=== PATIENT | female | born 1935 ===

== ENCOUNTER 2016-12-28 19:26 | Observation (INO) | payer MEDICARE ==
[~2016-12-28] VITALS: Ht 157.5 cm; Wt 99.0 kg
[2016-12-28 20:35] LABS: BASOPHILS % (AUTO) 0 % (0-2); EOSINOPHILS # (AUTO) 0.4 10^3uL; EOSINOPHILS % (AUTO) 5 % (0-4); LYMPHOCYTES # (AUTO) 1.4 X10^3; MEAN CORPUSCULAR HGB CONC 34.4 g/dL (31.0-37.0); MEAN CORPUSCULAR VOLUME 93 FL (80-100); MEAN PLATELET VOLUME 9.4 FL (6.0-9.5); MONOCYTES # (AUTO) 0.7 X10^3; MONOCYTES % (AUTO) 8 % (3-11); NEUTROPHILS # (AUTO) 6.2 X10^3; NEUTROPHILS % (AUTO) 71 % (51-67); PLATELET COUNT 233 10^3uL (150-450); WHITE BLOOD COUNT 8.77 10^3uL (4.0-11.0)
[2016-12-28 20:47] LABS: MEAN CORPUSCULAR HEMOGLOBIN 32.1 PG (26.0-34.0)
[2016-12-28 20:55] LABS: ALBUMIN 3.8 g/dL (3.4-5.0); ALKALINE PHOSPHATASE 123 U/L (38-126); ANION GAP 10.9 MEQ/L (3-15); BUN/CREATININE RATIO 22 (10-20); CALCULATED IONIZED CALCIUM 3.9 mg/dL (3.8-4.6); CREATINE KINASE 169 U/L (30-135); TOTAL PROTEIN 6.8 g/dL (6.4-8.5)
[2016-12-28 22:49] LABS: BILIRUBIN,URINE Negative (Negative); CLARITY,URINE Clear; COLOR,URINE Yellow; GLUCOSE, URINE (UA) Negative (Negative); LEUKOCYTE ESTERASE ,URINE Negative (Negative); PH,URINE 5.5 (5.0 - 8.0)
--- NOTE | 2016-12-29 02:10 | NUR ---
Patient admitted to room 314 at this time. Alert, oriented, talkative with staff. Patient able to stand from ED cart and to walk several small steps with 1 assist to bed, and again able to stand and to change out of skirt and depends. Patient reports "Oh, this is much better than earlier." Large hematoma noted to left eye, small clot noted. Patient reports generalized pain 4/10. See admission assessment part 1 & 2. Dr. Merino to see patient. Will continue to monitor.
[2016-12-29] MEDS ORDERED: ACETAMINOPHEN 325 MG TAB (TYLENOL) PO PRN (02:55)
[2016-12-29] MEDS ORDERED: POTASSIUM CHLORIDE ER 20 MEQ TABLET PO ONE (02:55)
[2016-12-29 03:05] VITALS: BP 129/56
--- NOTE | 2016-12-29 06:16 | NUR ---
Patient has slept in bed since admission without needs. Has not reported any pain or needs. Has not been up to bathroom since admission but was incontinent on arrival to floor. No needs at this time.
--- NOTE | 2016-12-29 07:20 | NUR ---
Patient sitting up in recliner upon shift assessment. Had just returned from bathroom with 1 assist and steady gate. Alert and oriented X3. Neuro check WNL. Denies pain but reports generalized body aches when ambulating contributed to fall. Left eye minimally open with hematoma noted. Denies dizziness, blurred vision, or headache. HR RRR. Lung sounds CTAB. Ice applied to left side of face per patient request. Updated on plan of care for shift. Call light in reach.
[2016-12-29 07:40] VITALS: BP 116/43
[2016-12-29] MEDS: CLOPIDOGREL 75 MG (PLAVIX) TAB PO SCH (08:52)
[2016-12-29] MEDS: DOCUSATE SODIUM 100 MG (COLACE) CAP PO SCH (08:52)
[2016-12-29] MEDS: ASPIRIN 81 MG CHEW (CHILDREN'S ASA) PO SCH (08:52)
[2016-12-29] MEDS: CHOLECALCIFEROL 1000 INT UNITS (VITAMIN D3) TABLET PO SCH (08:52)
[2016-12-29] MEDS: ALLOPURINOL 100 MG (ZYLOPRIM) TAB PO SCH (08:52)
[2016-12-29] MEDS: FUROSEMIDE 40 MG (LASIX) TAB PO SCH (08:52)
[2016-12-29] MEDS: LEVOTHYROXINE 100 MCG (LEVOTHROID) TABLET PO SCH (08:52)
[2016-12-29] MEDS: ATENOLOL 50 MG (TENORMIN) TAB PO SCH (08:53)
[2016-12-29] MEDS: POTASSIUM CHLORIDE ER 20 MEQ TABLET PO SCH (08:53)
[2016-12-29] MEDS: CARBOXYMETHYLCELLULOSE 1% (CELLUVISC) OPHTHALMIC DROPS OU SCH ×4 (08:53→20:36)
[2016-12-29] MEDS ORDERED: ENOXAPARIN 40 MG/0.4 ML (LOVENOX) SYR SC SCH (09:00)
[2016-12-29] MEDS ORDERED: NON-FORMULARY MEDICATION 1 EA EA (Aspirin (Aspir 81) 81 MG) PO SCH (09:00)
[2016-12-29] MEDS ORDERED: NON-FORMULARY MEDICATION 1 EA EA (Atorvastatin (Lipitor) 20 MG) PO SCH (09:00)
--- NOTE | 2016-12-29 14:11 | NUR ---
MULTIDISCIPLINARY MTG/DR. GARCIA: Pt. admitted from the ED after tripping and falling at the [employer] parking lot. Pt. has a left frontal hematoma and contusion. Pt. has some floaters in her eye. Dr. Fabian has been consulted. Pt. did well with PT evaluation. Pt. lives in [place] by herself. Pt. will possibly discharge home tomorrow. No discharge needs identified at this time.
--- NOTE | 2016-12-29 15:13 | NUR ---
Med Rec completed by Pharm student via list from doctors office and conversation with patient.
[2016-12-29 15:53] VITALS: BP 105/48
--- NOTE | 2016-12-29 18:01 | NUR ---
Patient sitting up in recliner conversing with . Denies headache, blurred vision, or dizziness throughout day shift. Dr. Fabian here for consult this afternoon and orders ice packs to be applied to left eye for 10 minutes then off for 10 minutes for the rest of the day. May use ice pack PRN tomorrow. Patient ambulating into bathroom and around room with standby assist and the walker, steady gate. Pleasant and cooperative with cares. Son at bedside. Call light in reach.
--- NOTE | 2016-12-29 20:10 | NUR ---
Patient pleasant and talkative. Denies pain, but states she is tender at bruised areas. Talks alot about fall and past history. States she is usually fine at home, but she tripped on curb. Uses cane to steady self as her knee sometimes gives out. Patient stated she had been looking into getting a lift chair for use at home. Expresses some concern over Left wrist which she has broken in the past. She has bruising and swelling at left wrist. States it is always a little swollen from previous break, but believes it is worse and is tender. States wrist was under her at fall.
[2016-12-29] MEDS ORDERED: ATORVASTATIN 10 MG (LIPITOR) TABLET PO SCH (21:00)
[2016-12-30 00:23] VITALS: BP 135/46
[2016-12-30 06:02] LABS: BASOPHILS % (AUTO) 0 % (0-2); EOSINOPHILS # (AUTO) 0.5 10^3uL; EOSINOPHILS % (AUTO) 7 % (0-4); LYMPHOCYTES # (AUTO) 1.5 X10^3; MEAN CORPUSCULAR HGB CONC 34.1 g/dL (31.0-37.0); MEAN CORPUSCULAR VOLUME 95 FL (80-100); MEAN PLATELET VOLUME 9.6 FL (6.0-9.5); MONOCYTES # (AUTO) 0.6 X10^3; MONOCYTES % (AUTO) 8 % (3-11); NEUTROPHILS # (AUTO) 4.2 X10^3; NEUTROPHILS % (AUTO) 62 % (51-67); PLATELET COUNT 207 10^3uL (150-450); WHITE BLOOD COUNT 6.71 10^3uL (4.0-11.0)
--- NOTE | 2016-12-30 06:30 | NUR ---
Patient has had no complaints throughout night. Was awake off and on. 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 Used Ice on and off in evening and PRN during night.
[2016-12-30 06:50] LABS: MEAN CORPUSCULAR HEMOGLOBIN 32.4 PG (26.0-34.0)
[2016-12-30 06:57] LABS: ALBUMIN 3.2 g/dL (3.4-5.0); ANION GAP 9.7 MEQ/L (3-15); CALCULATED IONIZED CALCIUM 4.2 mg/dL (3.8-4.6); TOTAL PROTEIN 5.9 g/dL (6.4-8.5)
--- NOTE | 2016-12-30 07:00 | NUR ---
Received report from Babita Medina RN. Assumed patient care.
[2016-12-30 07:44] VITALS: BP 162/51
--- NOTE | 2016-12-30 08:50 | NUR ---
Notified by Umer León CNA of a small amount of dried blood in patients brief when removed for shower.
[2016-12-30] MEDS: POTASSIUM CHLORIDE ER 20 MEQ TABLET PO SCH (09:43)
[2016-12-30] MEDS: CHOLECALCIFEROL 1000 INT UNITS (VITAMIN D3) TABLET PO SCH (09:43)
[2016-12-30] MEDS: CARBOXYMETHYLCELLULOSE 1% (CELLUVISC) OPHTHALMIC DROPS OU SCH ×3 (09:44→17:00)
[2016-12-30] MEDS: ATENOLOL 50 MG (TENORMIN) TAB PO SCH (09:44)
[2016-12-30] MEDS: CLOPIDOGREL 75 MG (PLAVIX) TAB PO SCH (09:44)
[2016-12-30] MEDS: LEVOTHYROXINE 100 MCG (LEVOTHROID) TABLET PO SCH (09:44)
[2016-12-30] MEDS: ASPIRIN 81 MG CHEW (CHILDREN'S ASA) PO SCH (09:45)
[2016-12-30] MEDS: ALLOPURINOL 100 MG (ZYLOPRIM) TAB PO SCH (09:45)
[2016-12-30] MEDS: FUROSEMIDE 40 MG (LASIX) TAB PO SCH (09:45)
[2016-12-30] MEDS: DOCUSATE SODIUM 100 MG (COLACE) CAP PO SCH (09:45)
--- NOTE | 2016-12-30 10:42 | NUR ---
NUTRITION ASSESSMENT Level 1 Patient: Babita Hart Age/Sex: 81/F Date Screened: 12-30-16 Weight: 217.8#/99 kg Height: 62 inches Primary Diagnosis: fall Diet Order: cardiac Relevant labs: glucose 86 Food allergies: N Nutrition Assessment Criteria Age over 80: N Body Mass Index (BMI) under 19: N Admission Screening Indicates Risk? N Moderate/High Risk Diagnosis: N TPN or PPN: N NPO or clear liquid diet: N Serum Glucose <70 or >180: N Hgb A1c >6.7: N/A Total: 0 points Risk Screen: _X_ Patient at low nutritional risk based on available data; reevaluate in 5-7 days __ Patient at moderate nutritional risk based on available data; reevaluate in 3-5 days __ Patient at high nutritional risk; complete Nutrition Assessment within 48 hours of admission. Comments: No weight changes, no GI concerns. Pt. is normally able to function independently at home. Eating well, 100% of cardiac diet. Will reassess as documented above.
--- NOTE | 2016-12-30 13:30 | NUR ---
Presented the HULL form to Pt. She verbalized understanding and signed and dated the form. A copy was given to the Pt. and the original was placed in the chart.
[2016-12-30 15:50] VITALS: BP 121/47
== END 2016-12-30 18:15 | disposition home or self-care (01) ==
LOC: ED 19:31 → MED/SURG 12-29 01:23
PROVIDERS: ADMIT Internal Medicine; ATTEND Internal Medicine
DX: S05.12XA Contusion of eyeball and orbital tissues, left eye, initial encounter (principal); S00.83XA Contusion of other part of head, initial encounter; S80.02XA Contusion of left knee, initial encounter; H43.392 Other vitreous opacities, left eye; E87.6 Hypokalemia; E03.9 Hypothyroidism, unspecified; I25.10 Atherosclerotic heart disease of native coronary artery without angina pectoris; W01.198A Fall on same level from slipping, tripping and stumbling with subsequent striking against other object, initial encounter; Y92.481 Parking lot as the place of occurrence of the external cause; Z79.82 Long term (current) use of aspirin; Z79.02 Long term (current) use of antithrombotics/antiplatelets; Z95.5 Presence of coronary angioplasty implant and graft; Z85.3 Personal history of malignant neoplasm of breast
CPT/HCPCS: 36415; 70450; 71010; 72125; 72170; 73562; 80053; 81003; 82550; 82553; 83735; 84443; 84484; 85025; 85610; 86140; 93005; 97110; 97116; 97161; 97165; 97530; 97535; 99283; A9270; G0378; G8978; G8979; G8987; G8988; 93010; 99218; 99285

== ENCOUNTER → 2016-12-28 | Outpatient (CLI) | payer MEDICARE, BC | LOC: EMS 19:15 | PROVIDERS: ATTEND Emergency Medicine | DX: S00.12XA Contusion of left eyelid and periocular area, initial encounter (principal); R07.81 Pleurodynia; W01.198A Fall on same level from slipping, tripping and stumbling with subsequent striking against other object, initial encounter; Y92.481 Parking lot as the place of occurrence of the external cause ==